=== PATIENT | male | born 1995 | race Caucasian/White ===

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

== ENCOUNTER 2017-02-21 16:42 | Emergency (ER) | payer OTHER ==
[~2017-02-21] VITALS: Ht 165.1 cm; Wt 68.2 kg
[2017-02-21] MEDS ORDERED: KETOROLAC10 MG PO (17:58)
[2017-02-21 19:08] VITALS: BP 123/56
== END 2017-02-21 18:10 | disposition home or self-care (01) ==
LOC: ED 16:42
DX: S93.402A Sprain of unspecified ligament of left ankle, initial encounter (principal); S93.602A Unspecified sprain of left foot, initial encounter; W17.89XA Other fall from one level to another, initial encounter; Y92.008 Other place in unspecified non-institutional (private) residence as the place of occurrence of the external cause
CPT/HCPCS: J1885